=== PATIENT | male | born 2000 | race Caucasian/White ===

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

== ENCOUNTER 2020-07-14 12:44 | Emergency (ER) | payer BC, SELFPAY ==
[2020-07-14 13:00] VITALS: BP 148/98; PULSE 105; RESP 17; TEMP 37.1; O2SAT 99
--- NOTE | 2020-07-14 13:21 | ED_ITS ---
HPI - Psych General Chief Complaint: Psychiatric Symptoms Stated Complaint: SI Time Seen by Provider: 07/14/20 12:45 Source: patient Mode of arrival: Ambulatory Limitations: no limitations History of Present Illness HPI Narrative: 19-year-old male nonsmoker with history of depression presents with a chief complaint of ongoing depression and suicidal thoughts. He has had these symptoms for quite some time and admits to having been off his medication for many months. He previously had a therapist but is in the process of switching and unable to get appointment until September. He denies any specific trigger or significant life altering event that brings him here today. He states that is not necessarily any worse today than other days but he felt it was appropriate to come and be seen in an effort to get some help. He states that if he were to harm himself he would take sleeping medications that he has at home. He does not have any firearms. He lives at home with multiple family members that he states are supportive. He denies any history of suicide attempts or hospitalizations for mental health reasons. Homicidal ideations. He states he is able to care for himself at home including bathing, cooking, etc.. He denies any auditory or visual hallucinations MD complaint: suicidal ideation Onset (ago): month(s) Duration: constant History of same: Yes Relieving factors: none Exacerbating factors: none Associated psychiatric symptoms: depression and suicidal ideation Associated symptoms: denies other symptoms Treatments prior to arrival: none If self harm: admits thoughts of self harm and has plan Related Data Previous Rx's Medication Instructions Recorded fluoxetine 20 mg PO SEE INSTRUCTIONS #90 cap 04/02/17 Allergies Allergy/AdvReac Type Severity Reaction Status Date / Time No Known Drug Allergies Allergy Verified 07/14/20 13:07 Review of Systems Constitutional Constitutional: Denies chills, Denies fatigue, Denies fever(s), Denies frequent falls, Denies lethargy and Denies weakness Eyes Eyes: Denies change in vision, Denies eye discharge, Denies irritation and Denies loss of vision ENT Ears, Nose, Mouth, and Throat: Denies change in voice, Denies dizziness, Denies neck pain, Denies sore throat and Denies throat swelling Cardiovascular Cardiovascular: Denies chest pain, Denies irregular heart rhythm, Denies lightheadedness, Denies palpitations, Denies dyspnea, Denies dyspnea on exertion and Denies orthopnea Respiratory Respiratory: Denies cough, Denies dyspnea, Denies dyspnea on exertion and Denies wheezing Gastrointestinal Gastrointestinal: Denies abdominal pain, Denies change in bowel habits, Denies diarrhea, Denies nausea and Denies vomiting Musculoskeletal Musculoskeletal: Denies neck pain and Denies numbness Integumentary/Breasts Skin/Breast: Denies pruritus, Denies erythema, Denies rash and Denies wounds Neurologic Neurologic: Denies behavioral changes, Denies confusion, Denies dizziness, Denies frequent falls, Denies loss of vision, Denies numbness and Denies weakness Psychiatric Psychiatric: Denies anxiety, Denies behavioral changes, Denies confusion, Reports depression, Denies homicidal ideation and Reports suicidal ideation Endocrine Endocrine: Denies fatigue, Denies flushing and Denies palpitations Hematologic/Lymphatic Hematologic/Lymphatic: Denies easy bruising Allergic/Immunologic Allergic/Immunologic: Denies urticaria, Denies throat swelling and Denies wheezing Patient History Social History Smoking Status: Never smoker Smoking Status: Never smoker alcohol intake frequency: other Substance Use Type: does not use Exam Narrative Exam Narrative: GENERAL: [19] year old patient appears stated age. Well- nourished, well-developed patient, in mild distress. Good insight and eye contact, engaged conversation HEAD: Atraumatic. Normocephalic. EYES: Pupils equal round and reactive. Extraocular motions intact. No scleral icterus. No injection or drainage. ENT: Nose without bleeding, purulent drainage. Throat without erythema, tonsillar hypertrophy or exudate. Airway patent. NECK: Trachea midline. Non tender CARDIOVASCULAR: Regular rate and rhythm without murmurs, gallops, or rubs. RESPIRATORY: Clear to auscultation. Breath sounds equal bilaterally. No wheezes, rales, or rhonchi. GASTROINTESTINAL: Abdomen soft, non-tender, nondistended. EXTREMITIES: No edema or joint tenderness. BACK: Nontender without deformity or crepitance. No flank tenderness. NEURO: AOx3. SKIN: No rash or erythema of visible areas Initial Vital Signs Initial Vital Signs: Vital Signs Temperature 98.7 F 07/14/20 13:00 Pulse Rate 105 H 07/14/20 13:00 Respiratory Rate 17 07/14/20 13:00 Blood Pressure 148/98 H 07/14/20 13:00 Pulse Oximetry 99 07/14/20 13:00 Course Course Course Narrative: Patient has been seen and evaluated by social Work, please see their note for the details. We bow surely opinion the patient can appropriately contract for safety and has capacity to make his own decisions. He is here voluntarily and has been connected with the crisis team and states this makes him feel better. He has been given return precautions and questions are answered to apparent satisfaction Orders Ordered: ED Orders 07/14/20 13:08 Consult to [employer]ESS TENDER - Software Quality Assurance Analyst Stat Vital Signs Vital signs: Vital Signs - 8 hr 07/14/20 13:00 Temperature 98.7 F Pulse Rate 105 H Respiratory Rate 17 Blood Pressure 148/98 H Pulse Oximetry 99 [facility] - Psych Lab Data Labs: Lab Results 07/14/20 Range/Units 14:39 U Opiates 300ng/mL cut Negative (Negative) Ur Oxycodone Screen Negative (Negative) Urine Methadone Screen Negative (Negative) Ur Barbiturates Screen Negative (Negative) U Tricyclic Antidepress Negative (Negative) Ur Phencyclidine Scrn Negative (Negative) Ur Amphetamines Screen Negative (Negative) U Methamphetamines Scrn Negative (Negative) Ur MDMA Scrn (Ecstasy) Negative (Negative) U Benzodiazepines Scrn Negative (Negative) Urine Cocaine Screen Negative (Negative) U Marijuana (THC) Screen Negative (Negative) Point of Care Testing Glucose POC 89 Urine Dip Bedside Urine Glucose Negative Bedside Urine Bilirubin - Negative Bedside Urine Ketone - Negative Urine Specific [place] 1.025 Bedside Urine Occult Blood - Negative Bedside Urine pH 6 Bedside Urine Protein - Negative Bedside Urine Urobilinogen - Negative Bedside Urine Nitrite - Negative Bedside Urine Leukocytes - Negative Esterase Discharge Plan Departure Patient Disposition: Home Clinical Impression: Suicidal ideation Instructions: DI for Suicidal Ideation-Adult Activity Restrictions/Additional Instructions: *You have been diagnosed with [depression with suicidal ideation] *What to do: * follow instructions given to you from our social work specialist. Their office can be reached at [phone] *Return to ER if you should have any new, worsening or concerning symptoms *If you feel that you are entering into mental health crisis you have multiple options 1. Return to the ER immediately 2. Call the Crisis Line at [phone] 3. Send an anonymous text by sending the word [place] to [phone] 4. Navigate your web browser to [email or web address] to engage in anonymous chat with a mental health worker Prescriptions: No Action fluoxetine 20 MG capsule 20 mg PO SEE INSTRUCTIONS Qty: 90 RF: 3 Referrals: [facility] [Outside]
--- NOTE | 2020-07-14 15:00 | CM.SWNOTE ---
INVENTORY CONTROLLER Note INVENTORY CONTROLLER - Driver/Refuse Collector Assessment INVENTORY CONTROLLER - Driver/Refuse Collector Assessment Start: 07/14/20 14:10 Freq: Status: Active Protocol: Document 07/14/20 14:11 JOCELYN (Rec: 07/14/20 14:27 JOCELYN [id number]) INVENTORY CONTROLLER/Driver/Refuse Collector Assessment Time Spent with Patient Start date 07/14/20 Visit Start Time 13:15 End date 07/14/20 Visit End Time 14:00 Total time Care Management spent on 45 patient visit-in minutes Mental Health Screening Include Onset, Duration, Intensity Presenting Problem Patient presents to this ED after calling suicide hotline with SI with plan and means. Patient reports he has a plan to kill himself by using sleeping pills that had been prescribed to him. Patient reports he has two bottles of clonidine. Patient does not endorse specific date he intends to carry out plan, stating I'm really good at putting things off. Patient endorses difficulty with sleep, increased eating for comfort. Precipitating Event(s) Patient states he has been wanting what happens after dying since May 2020. Patient reports he discontinued medication for anxiety, depression roughly 1 year prior. Is interested in restarting. Patient reports hx of body dysphoria, and explained that he recently realized that he will not be able to obtain the body he had prior to puberty, which is the body he is wanting. Patient Strengths Patient is articulate and deeply caring about his family and those around him. Current Behavioral Health Provider(s) Patient made an appt for Include Facility, Provider, Ph. # psychiatry in April 2020, but the appointment is not until September,. Patient states he does not remember the name of the psychiatrist. Psych. Hx Mental Health and Chemical Patient has hx of depression, Dependency anxiety, and SI. Patient denies previous suicide attempts. Patient discloses history and current presence of body dysphonia and states no gender dysphoria. Patient denies any ETOH or other substance use. Family Hx of Behavioral Abuse Patient denies any abuse. Psychiatric Hospitalizations (date(s)/ None reported. location) Psychosocial information & Support Patient is 19 y/o male who Systems lives at home with his parents and 5 younger siblings. Patient reports he does not feel that he can discuss his suicidality with his parents or family as two of his younger siblings are high risk and he does not want to overwhelm his parents. Patient states he does not feel parents would respond in a constructive way to learning of his SI. Patient describes a deep caring for all members of his family and explains that this has helped him avoid suicide in the past. School/Work Patient dropped out of school during his sophomore year of high school. Legal Concerns Legal Matters - Outstanding Issues None Mental Status Orientation (Person/Place/Time) Oriented x3 Stated Mood ok Affect (Congruent with Mood?) Dysthymic, normal range, stable, congruent with mood Thought Content - Specify/Describe No obsessions, hallucinations, Obsessions, Delusions, Hallucinations or delusions observed or reported. Thought Processes (Juxkbfl-Sovcdikv-Zeid Coherent Hcywqsbr-Hesxkkgr-Fneyotnrll- Rgtxfefvgochbv-Uixzfhb-Lzxprkvxiufw- Thought Blocking) Speech (Stdthi-Ryod-Fzdebta-Rapid-Soft- Normal Loud-Pressured) Motor (Vojtvu-Otskqjvbl-Mnyq-Other) Normal Insight (Dppu-Emvk-Otwl/Limited) Good Judgement (Hawb-Htmn-Ixhl/Limited) Good-fair Impulse Control (Adequate-Impaired) Adequate Memory (Zzuhliyxz-Rzseec-Ulmjec, Intact for assessment. Patient Impaired-Intact) reports having difficulty with memory and recall in recent months. Concentration (Intact-Impaired) Intact for interview. Patient endorses difficulty in concentration and attention during recent months. Attention (Intact-Impaired) Intact for interview. Patient endorses difficulty in concentration and attention during recent months. Behavior (Appropriate-Inappropriate) Appropriate Risk Assessment Suicidal Ideation (Plan) Yes Homicidal Ideation (Plan) No Comment Patient denies HI. Patient endorses SI with plan and means. Patient endorses that he has sleeping pills that he would use for suicide. Patient explains he believes he would attempt on an ordinary day after normalizing it, and his attempt would not occur after an escalatory event. Patient states he believes his suicide to be an inevitability. Patient states he does not believe he would commit suicide soon as he is aware of the likely suicides of his siblings that would follow his own, and does not want to cause pain to others. When asked to rate the likelyhood of his suicide in the near future (1= very low likelyhood; 10 being very high likelyhood) patient stated he was at a 3, and reiterated that it would be selfish of him and he was worried about the impact this would have on his siblings. Intervention Intervention INVENTORY CONTROLLER meets with patient. Patient discusses current SI, plan. Patient explains he feels his by suicide is inevitable as the root of his SI is in his body dysphoria, however, patient recognizes that his suicide would be very detrimental to those around him. Patient explains he recognizes that his medications were helpful and is looking to restart them . Patient states he has already made an appt with a psychiatrist, but will not be able to see them until September. INVENTORY CONTROLLER informs patient that it is unlikely that medications will be prescribed from ED. Patient informs INVENTORY CONTROLLER that he was last seen at [facility] for primary care. INVENTORY CONTROLLER encourages patient to re-establish care at [facility] and that a PCP may be able to restart medication more quickly. INVENTORY CONTROLLER and patient discuss inpatient option. Patient explores this option with INVENTORY CONTROLLER, but is not interested at this time and offers that being surrounded by others in that way would be more traumatic than helpful. Patient does not meet criteria for DCR at this time. Patient offers that he will flush the pills when he gets home. INVENTORY CONTROLLER explains [facility] follow up calls and patient agreeable to receiving follow up calls. INVENTORY CONTROLLER offers to print list of counselors for patinet and patinet agreeable. INVENTORY CONTROLLER provides phone and text for [facility] which patient puts into his phone. INVENTORY CONTROLLER reviews the above with Dr. Amos who indicates agreement at this time. Plan RA Plan Pending review and confirmation from ED provider, current plan is for d/c to home with outpatient support and resources for PCP, counseling, and crisis intervention. TERRELL Duggan
--- NOTE | 2020-07-14 15:23 | CM.SWNOTE ---
PROPERTY MANAGEMENT INTERN note Following assessment, PROPERTY MANAGEMENT INTERN provides printed list of therapists from [email or web address] to patient. PROPERTY MANAGEMENT INTERN calls and arranges [facility] follow up calls for patient for next 3 days. [facility] will contact patient in noon-1400 time window. TERRELL Duggan
[2020-07-14 15:46] LABS: UR Morphine/Opiate cutoff 300 Negative (Negative); Ur Creatinine Normal (Normal); Ur Specific Gravity Normal (Normal); Urine Amphetamines Negative (Negative); Urine Barbiturates Negative (Negative); Urine Benzodiazepines Negative (Negative); Urine Cocaine Negative (Negative); Urine MDMA Negative (Negative); Urine Methadone Negative (Negative); Urine Methamphetamines Negative (Negative); Urine Oxycodone Negative (Negative); Urine Phencyclidine Negative (Negative); Urine Tetrahydrocannabinol Negative (Negative); Urine Tricyclic Antidepressant Negative (Negative); Urine pH Normal (Normal)
[2020-07-14 15:58] VITALS: BP 116/72; PULSE 60; RESP 16; TEMP 36.9; O2SAT 97
== END 2020-07-14 16:14 | disposition home or self-care (01) ==
PROVIDERS: Emergency Provider Emergency Medicine
DX: R45.851 Suicidal ideations (principal); F32.9 Major depressive disorder, single episode, unspecified
CPT/HCPCS: 80305; 81003; 82962; 99284

== ENCOUNTER → 2020-07-26 13:41 | Outpatient (CLI) | payer BC, SELFPAY ==
[2020-07-26 14:15] LABS: Add Manual Diff / Slide Review NO; Basophils Absolute Auto 0 /uL (0-100); Basophils Percent Auto 0.5 % (0-2); Eosinophils Absolute Auto 100 /uL (0-450); Eosinophils Percent Auto 2.3 % (2-4); Hematocrit 43.7 % (41-53); Hemoglobin 15.3 g/dL (13.5-17.5); Lymphocytes Absolute Auto 1300 /uL (1100-4500); Lymphocytes Percent Auto 22.5 % (25-40); Mean Corpuscular HGB Conc 35.1 % (30-36); Mean Corpuscular Hemoglobin 29.6 PG (26-34); Mean Corpuscular Volume 84.5 fL (80-100); Monocytes Absolute Auto 700 /uL (0-900); Monocytes Percent Auto 12.6 % (3-14); Neutrophils Absolute Auto 3600 /uL (1500-7000); Neutrophils Percent Auto 62.1 % (50-75); Platelet Count 261 X10^3/uL (150-400); Red Blood Cell Count 5.17 X10^6/uL (4.5-5.9); Red Cell Distribution Width 13.2 % (11.6-14.8); White Blood Cell Count 5.9 X10^3/uL (4.5-11.0)
[2020-07-26 15:02] LABS: Alanine Aminotransferase 39 IU/L (<50); Albumin 5.1 g/dL (3.5-5.0); Albumin Globulin Ratio 1.8 (1.0-2.8); Alkaline Phosphatase 62 U/L (38-126); Aspartate Aminotransferase 32 IU/L (17-59); BUN Creatinine Ratio 15.9 (6-22); Bilirubin Total 0.5 mg/dL (0.2-1.3); Blood Urea Nitrogen 13 mg/dL (9-20); Calcium 10.6 mg/dL (8.4-10.2); Carbon Dioxide 31 mmol/L (22-32); Chloride 100 mmol/L (98-107); Estimated Glomerular Filt Rate > 60.0 mL/min (>60); Globulin 2.8 g/dL (1.7-4.1); Glucose 82 mg/dL (70-100); HEMOLYSIS < 15 (0-50); Sodium 141 mmol/L (137-145); Total Protein 7.9 g/dL (6.3-8.2)
[2020-07-26 15:07] LABS: Free T4, Direct Thyroxine 0.86 ng/dL (0.78-2.19)
[2020-07-26 15:21] LABS: Thyroid Stimulating Hormone 1.57 uIU/mL (0.47-4.68)
== END ==
PROVIDERS: PCP Registered Nurse; Referring Provider Registered Nurse; Visit Provider Registered Nurse
DX: F41.8 Other specified anxiety disorders (principal); F90.9 Attention-deficit hyperactivity disorder, unspecified type; Z79.899 Other long term (current) drug therapy
CPT/HCPCS: 36415; 80053; 84439; 84443; 85025

== ENCOUNTER → 2021-05-06 11:11 | Outpatient (CLI) | payer BC, SELFPAY ==
[2021-05-06 12:46] LABS: Alanine Aminotransferase 31 IU/L (<50); Albumin 4.8 g/dL (3.5-5.0); Albumin Globulin Ratio 1.5 (1.0-2.8); Alkaline Phosphatase 57 U/L (38-126); Aspartate Aminotransferase 28 IU/L (17-59); BUN Creatinine Ratio 16.5 (6-22); Bilirubin Total 0.4 mg/dL (0.2-1.3); Blood Urea Nitrogen 14 mg/dL (9-20); Calcium 9.6 mg/dL (8.4-10.2); Carbon Dioxide 30 mmol/L (22-32); Chloride 102 mmol/L (98-107); Estimated Glomerular Filt Rate > 60.0 mL/min (>60); Globulin 3.2 g/dL (1.7-4.1); Glucose 87 mg/dL (70-100); HEMOLYSIS < 15 (0-50); Potassium 4.3 mmol/L (3.4-5.1); Sodium 139 mmol/L (137-145)
== END ==
PROVIDERS: PCP Registered Nurse; Referring Provider Registered Nurse; Visit Provider Registered Nurse
DX: F41.8 Other specified anxiety disorders (principal); F90.9 Attention-deficit hyperactivity disorder, unspecified type
CPT/HCPCS: 36415; 80053